=== PATIENT | male | born 1940 | race Caucasian/White ===

== ENCOUNTER 2023-12-07 16:42 | Observation (INO) | payer MEDICARE, OTHER, SELFPAY ==
[2023-12-07] VITALS (9 sets, daily range): BP systolic 143–166; BP diastolic 66–79; BMI 19.3
[2023-12-07 12:47] LABS: % Basophils 0.3 % (0-2); % Eosinophils 1.9 % (0-6); % Immature Granulocytes 0.7 % (0-0.5); % Lymphocytes 8.7 % (20.5-51.1); % Monocytes 13.6 % (1.7-9.3); % Neutrophils 74.8 % (42.2-75.2); Absolute Eosinophils 0.1 10^3/uL (0-0.7); Absolute Immature Granulocytes 0.1 10^3/uL (0-0.05); Absolute Lymphocytes 0.6 10^3/uL (1.2-3.4); Absolute Monocytes 0.9 10^3/uL (0.1-0.6); Absolute Neutrophils 5.2 10^3/uL (1.4-6.5); Hematocrit 31.6 % (39.0-52.0); Hemoglobin 10.5 g/dL (13.0-18.0); Mean Corp Hgb Conc. 33.2 g/dL (33.0-37.0); Mean Corpuscular Hgb 32.2 pg (27.0-31.0); Mean Corpuscular Volume 96.9 fL (80.0-94.0); Mean Platelet Volume 9.1 fL (7.4-10.4); Nucleated Red Blood Cells % 0 % (-); Platelet Count 330 10^3/uL (130-400); Red Blood Cell Count 3.26 10^6/uL (4.70-6.10); Red Cell Dist. Width 11.7 % (11.5-14.5); White Blood Cell Count 6.9 10^3/uL (4.8-10.8)
[2023-12-07 13:03] LABS: ALT (SGPT) 63 U/L (0-50); AST (SGOT) 34 U/L (17-59); Albumin 2.4 g/dl (3.5-5.0); Alkaline Phosphatase 101 U/L (38-126); Blood Urea Nitrogen 15 mg/dl (9-20); Carbon Dioxide 27 mmol/L (22-30); Chloride 103 mmol/L (98-107); Glucose 89 mg/dl (70-99); Potassium 4.2 mmol/L (3.5-5.1); Sodium 134 mmol/L (135-145); Total Bilirubin 0.7 mg/dl (0.2-1.3); Total Protein 5.9 g/dl (6.3-8.2); eGFR > 60.00
[2023-12-07 13:12] LABS: Urine Albumin Negative (Neg - Trace); Urine Bilirubin Negative (Negative); Urine Character Clear (Clear); Urine Color Yellow; Urine Glucose Negative (Negative); Urine Ketone Negative (Negative); Urine Leukocyte Negative (Negative); Urine Nitrite Negative (Negative); Urine Occult Blood Negative (Negative); Urine Specific Gravity 1.015 (<1.030); Urine Urobilinogen 2+ (Neg - 1+); Urine pH 6.5 (5.0-9.0)
[2023-12-07 13:23] LABS: INR 1.78; PT 20.5 Sec (11.4-14.6)
--- NOTE | 2023-12-07 14:36 | ED.GENMED ---
History of Present Illness
General
Chief Complaint: Dehydration Symptoms
Source: spouse
Exam Limitations: none
Time Seen by Provider: 12/07/23 13:21
Nursing documentation reviewed up to this point in time: agreed with
Travel History
Have you had any contact with someone who has COVID-19?: No
Do you have any symptoms of coronavirus? Fever > 100 degrees, chills, cough, shortness of breath, sore throat, loss of taste or smell, muscle aches, or headache?: No
History of Present Illness
History of Present Illness:
Patient to ED for eval of lethargy. states since June he has been having periods where he will not get OOB, wont eat or drink. This is happening more frequently. states he was admitted to [facility] on Thursday but she signed him out
yesterday. SHe did not feel that he was getting the care he needed there. She brought him here at son's request. Patient is awake and oriented but flat. He denies any pain.
Past History
Past History
ED Past Medical History: Arrthythmia (afib), HTN, Hypercholesterolemia and Psychiatric (depression)
Review of Systems
Review of Systems
Allergies reviewed?: Yes
All Other Systems: ROS reviewed and negative except as documented in HPI and ROS
Constitutional: Reports fatigue
EENT: Reports no symptoms
Respiratory: Reports no symptoms
Cardiac: Reports no symptoms
ABD/GI: Reports anorexia
: Reports no symptoms
Musculoskeletal: Reports no symptoms
Skin: Reports no symptoms
Neurological: Reports weakness
Psychiatric: Reports no symptoms
Phy Exam
General Physical Exam
General Presentation: mild distress
General age: appears stated age
General Skin: warm and dry
General Habitus: failure to thrive and frail
Cardiovascular Exam
Cardiovascular Exam: regular rate/rhythm
Pulmonary Exam
Pulmonary Exam: lungs clear and no respiratory distress
Gastrointestinal Exam
Gastrointestinal Exam: normal bowel sounds, non tender and soft
Neurological Exam
Neurological Exam: oriented x3, CN II-XII intact, no motor deficits, no sensory deficits and speech normal
Musculoskeletal Exam
Musculoskeletal Exam: full ROM and neuro vasc intact
Skin Exam
Skin Exam: normal color, warm/dry and no rash
Psychiatric Exam
Psychiatric Exam: depressed
Course
Orders/Labs/Results
Orders:
Orders
12/07/23 12:34
EKG [Electrocardiogram (*1)] Stat
Reason for Study: Fatigue / Weakness
12/07/23 12:35
EKG- Treatment ONCE
12/07/23 12:36
Cardiac Monitoring- Treatment ONCE
IV Insert/Care/Rem.- Treatment PRN
CR Chest - 2 Views Urgent
Comment:
Reason For Exam: suspected infection
12/07/23 12:38
Complete Blood Count/With Diff Urgent
Comprehensive Metabolic Panel Urgent
Ferritin Urgent
Comment: ADD ON
Folate Urgent
Comment: ADD ON
Iron Urgent
Comment: ADD ON
Lactic Acid Q4H
Comment: ON ICE, CANCEL 2ND ORDER IF FIRST LACTIC ACID LEVEL <2
Prothrombin Time Urgent
TSH Reflex To Free T4 Urgent
Comment: ADD ON
Total Iron Binding Urgent
Comment: ADD ON
Vitamin B12 Urgent
Comment: ADD ON
Vitamin D, 25-Oh Urgent
Blood Culture Q30M
ALTA Source: Blood/Venous
Specimen Description:
Comment: FROM 2 SEPARATE SITES
Blood Culture Q30M
ALTA Source: Blood/Venous
Specimen Description:
Comment: FROM 2 SEPARATE SITES
12/07/23 13:02
Urinalysis Reflex To Culture Urgent
Date Specimen was Collected: 12/07/23
Time Specimen was Collected: 12:36
12/07/23 14:23
0.9% Sodium Chloride 1000 ml [Nss] 1,000 ml IV BOLUS
12/07/23 Dinner
Regular
At Your Request: Limited Participation
12/07/23 16:01
Add On- LAB Urgent
Tests Added?: b12 folate ferritin iron tibc
12/07/23 16:13
Add On- LAB Routine
Tests Added?: TSH with reflex T4, Vitamin B12, Vitamin D
12/07/23 16:20
Consult Psychiatry [PSYCHIATRY CONSULT] Routine
Consulting Provider: Mark Mckay
Was physician already notified: Yes
Reason for consult: depression FTT hypersomnia
12/07/23 16:21
Admit/Transfer Patient As Directed
Co-Sign Provider:
Level of Care: Observation services
Assign to:: Medical/Surgical
Physician / Group: radha barber
Diagnosis: ftt, depression macrocyctic anemia
Code Status As Directed
Resuscitation Status: Full Code
12/07/23 17:23
VTE Contraindication Routine
VTE Mechanical Device Contraindication: Medical Contraindication
Pharmocologic Contraindication: Medical Contraindication
Comment: pt on xarelto
Activity As Directed
Activity Level: As Tolerated
Intake/ Output As Directed
Frequency: Per unit guidelines
Vital Signs As Directed
Frequency: Per unit guidelines
Weight As Directed
Frequency: Daily
Ot Eval And Treat Routine
Pt Eval And Treat Routine
Activity Level: As Tolerated
12/07/23 18:00
Atorvastatin [Lipitor] 10 mg PO QPM
Rivaroxaban [Xarelto] 20 mg PO QPM
12/07/23 22:00
Metoprolol [Lopressor] 12.5 mg PO HS
12/08/23 06:00
Cardiovascular Evaluation IN AM
Complete Blood Count/With Diff IN AM
Comprehensive Metabolic Panel IN AM
12/08/23 08:00
Amiodarone [Pacerone] 400 mg PO DAILY
Cholecalciferol (Vitamin D3) [VITAMIN D3 (cholecalciferol)] 25 mcg PO DAILY
Losartan [Cozaar] 12.5 mg PO DAILY
Metoprolol [Lopressor] 50 mg PO DAILY
Sertraline HCl [Zoloft] 25 mg PO DAILY
12/09/23 06:00
Complete Blood Count/With Diff IN AM
Comprehensive Metabolic Panel IN AM
12/18/23 08:00
Amiodarone [Pacerone] 200 mg PO DAILY
Abnormal Lab Results
12/07/23 12/07/23
12:38 13:02
RBC 3.26 L 10^6/uL
(4.70-6.10)
Hgb 10.5 L g/dL
(13.0-18.0)
Hct 31.6 L %
(39.0-52.0)
MCV 96.9 H fL
(80.0-94.0)
MCH 32.2 H pg
(27.0-31.0)
Abs Immat Gran (auto) 0.1 H 10^3/uL
(0-0.05)
Absolute Lymphs (auto) 0.6 L 10^3/uL
(1.2-3.4)
Absolute Monos (auto) 0.9 H 10^3/uL
(0.1-0.6)
Immature Gran % 0.7 H %
(0-0.5)
Lymphocytes % 8.7 L %
(20.5-51.1)
Monocytes % 13.6 H %
(1.7-9.3)
PT 20.5 H Sec
(11.4-14.6)
Sodium 134 L mmol/L
(135-145)
Creatinine 0.6 L mg/dL
(0.7-1.3)
Calcium 8.0 L mg/dl
(8.4-10.2)
Iron 26 L ug/dl
(49-181)
TIBC 181 L ug/dl
(261-462)
% Saturation 14 L %
(20-50)
Ferritin 472.0 H ng/ml
(17.9-464.0)
ALT 63 H U/L
(0-50)
Total Protein 5.9 L g/dl
(6.3-8.2)
Albumin 2.4 L g/dl
(3.5-5.0)
Vitamin D 25-Hydroxy 25.0 L ng/mL
(30-80)
Urine Urobilinogen 2+ A
(Neg - 1+)
12/07/23 12:38
12/07/23 12:38
Vital Signs
Initial and Last Documented VS:
Initial Vital Signs
Temp Pulse Resp Pulse Ox
98.6 F 71 18 98
12/07/23 12:31 12/07/23 12:31 12/07/23 12:31 12/07/23 12:31
Last Documented Vital Signs
Temp Pulse Resp BP Pulse Ox
98.5 F 65 18 154/69 98
12/07/23 17:35 12/07/23 21:07 12/07/23 20:23 12/07/23 21:07 12/07/23 20:23
*Radiology
Radiology exam reviewed: radiology read reviewed
*Pulse Oximetry
Patient hypoxic: no
*Critical Care Note
Total Time (30-74mins, 75-104mins- exclusive of procedures): Not Applicable
Update Note
Update Note:
Patient brought to ED by spouse for failure to thrive. No eating or drinking. Will not get OOB. Increasing weakness. He was admitted to [facility] this weekend but spouse removed him because of care. [facility] afib. [facility] Dr[facility]aston [facility]. [facility] Ac[facility]arnulfo [facility]. states Neurology has r/o parkinsons disease. He was recently started on antidepressents. He is awake and oriented but mood is flat. IVF started in dept. Will not eat or drink in
dept. Will admit to hospitalist for failure to thrive.
ED Attending Note
-
Portions of this chart may have been created with voice recognition software.� Occasional wrong word or��sound alike� substitutions may have occurred due to the inherent limitations of voice recognition software.
Discharge Plan
Departure
Patient Disposition: Admit
Date of Disposition: 12/07/23
Time of Disposition: 15:13
Presentation/result/management discussed w/ accepting MD/DO: Hospitalist
Condition: Fair
Covid-19: Not Applicable
Discharge Problem:
Failure to thrive
Interventions
Interventions:
*Risk Screen - Suicide Last Done: 12/07/23 17:44
*General Assessment Last Done: 12/07/23 12:31
*Neglect/Abuse Screening Last Done: 12/07/23 12:31
ED- Fall Risk Assessment Last Done: 12/07/23 12:39
*ED COVID-19 Vaccine History Last Done: 12/07/23 17:44
*Nursing Disposition Last Done: 12/07/23 17:20
ED- Cardiac Assessment Last Done: 12/07/23 12:39
ED- Neurological Assessment Last Done: 12/07/23 12:39
ED- Pulmonary Assessment Last Done: 12/07/23 12:39
Discharge Date and Time
Discharge Date/Time: 12/07/23 17:37
[2023-12-07] MEDS: NSS 1000 IV (15:23)
--- NOTE | 2023-12-07 15:26 | HPS.HSE ---
Addendum entered and electronically signed by AGUSTÍN Kilgore 12/07/23 16:31:
Medication Correction
-
Patient was to start amiodarone 400 mg x 10 days then 200 mg daily
Original Note:
Family Physician
-
Family Physician: Adolfo Mcgill
Chief Complaint
-
Lethargy, sleeping, decreased oral intake
History of Present Illness
83-year-old male brought to the ER by his . She reports he has been lethargic since June with episodes of not getting out of bed, not eating or drinking. The patient's and daughter state that his episodes have been coming more
frequently over the past few weeks where he will sleep for 2 to 3 days in his bed. His states the bed does not incline she is afraid to feed him while in bed. She reports they sleep in separate bedrooms and she does hear him go to the
bathroom during the night. She states he is too weak to get up during the day. Patient is currently oriented x 3 has a very flat affect. He states he could be depressed somewhat. He reports feeling very tired and having difficulty getting out of
bed and has been sleeping a lot. He does not know what the cause of this is. His and daughter state he was placed on an antidepressant Zoloft 25 mg approximately 1 week ago by his segment assembler. He was also started on amiodarone for Holter
monitor showing over thousand episodes of SVT. His states he is only taken about 4 doses in the last 6 days while awake. His also states that he used to live in [place] until 2016 and a very active community they moved to a intermediate
community here for which they do not have chronic access to multiple people or activities due to having [place] [employer]. She reports since 2017 he has dropped from 210 pounds to 150 pounds. The patient denies any headache, sore throat,
chest pain, palpitations, shortness of breath, cough, abdominal pain, nausea, vomiting, diarrhea, gait disturbance.
She reports she had him admitted to [facility] on Thursday 2 days ago but felt he was not getting care there so she signed him out AGAINST MEDICAL ADVICE. Patient's past medical history of A-fib, HTN, HLD, depression, SVT Dx November 2023.
Medical History
Past Medical History
Past Medical History: Reports Other
Additional Past Medical History:
A-fib, HTN, HLD, depression, SVT Dx November 2023, [place] bilateral hearing aids
Past Surgical History: Reports None
Social History
Tobacco: Non-smoker
Alcohol: None
Drug: None
Personal:
Living: With Family ()
Employment: Retired
Family History
Family History: Other (Father age 58 [place], father age 90, Brother living age 75 appendiceal [place])
Allergies / Home Medications
Allergies reflects when Allergies were last updated in [employer].
Home Medications with original date entered in [employer]
Allergy/Medication List:
Allergies
Allergy/AdvReac Type Severity Reaction Status Date / Time
No Known Allergies Allergy Unverified 12/07/23 12:31
Home Medications
amiodarone 200 mg tablet 400 mg PO UD 12/07/23
cholecalciferol (vitamin D3) 25 mcg (1,000 unit) tablet (Vitamin D3) 25 mcg PO DAILY 12/07/23
losartan 25 mg tablet 12.5 mg PO DAILY 12/07/23
metoprolol tartrate 25 mg tablet 12.5 mg PO HS 12/07/23
metoprolol tartrate 50 mg tablet 50 mg PO DAILY 12/07/23
rivaroxaban 20 mg tablet (Xarelto) 20 mg PO QPM 12/07/23
sertraline 25 mg tablet 25 mg PO DAILY 12/07/23
simvastatin 10 mg tablet 10 mg PO QPM 12/07/23
vit C 250 mg-vit E 90 mg-zinc 40 mg-copper 1 [id number] capsule (PreserVision AREDS-2) 1 tab PO BID 12/07/23
Review of Systems
-
History Source: Patient and Family ( and daughter at bedside)
A 12 point ROS was completed and negative except as noted: Yes
Constitutional: Reports Fatigue and Other (Hypersomnia, chronic flat affect per daughter at bedside)
EENT: Denies Sore Throat or Other
Respiratory: Denies Cough or Trouble Breathing
Cardiac: Denies Chest Pain, Diaphoresis, Palpitations or Syncope
Abdomen/GI: Reports Anorexia; Denies Abdominal Pain, Nausea, Vomiting, Diarrhea, Constipated, Bloody Stools or Black Stools
: Denies Dysuria, Frequency, Flank Pain, Incontinence, Difficulty Voiding or Urgency
Musculoskeletal: Denies Joint Pain or Edema
Skin: Denies Itching or Rash
Neurological: Denies Dizzy, Headache or Weakness
Endocrine: Reports No Symptoms
Hematologic/Lymphatic: Reports No Symptoms
Psych: Reports Calm
Physical Exam
Vital Signs
Vital Signs
Temp Pulse Resp BP Pulse Ox
98.6 F 69 19 149/79 99
12/07/23 12:31 12/07/23 13:00 12/07/23 13:00 12/07/23 13:00 12/07/23 13:00
Physical Exam
General: Other (Flat affect will answer questions appropriately but allows and daughter to answer first is a full to maintain eye contact during conversation)
HEENT: NormoCephalic, Anicteric, PERRLA, [place] Conjunctivae, No Ptosis and Other (Chronic [place] has bilateral hearing aids in place)
Respiratory: Clear; No Wheezes, Rales or Rhonchi
Cardiac: S1/S2 and Regular Rhythm; No Murmur, Rub, Gallop or Peripheral Edema
GI: Soft, Non Tender, Non Distended, Normal Bowel Sounds and No Hepatosplenomegaly
Rectal: Deferred by Provider
Genito-urinary: Deferred by me
Musculoskeletal: No Clubbing, No Cyanosis and No Edema
Skin: Warm; No Rash
Neuro: AO x 3, No Motor Deficits, Nonfocal/grossly intact, Cranial Nerves Intact and No Sensory Deficits; No Slurred Speech, Facial Droop or Tremors
Psych: Calm and Depressed
Laboratory Results
-
12/07/23 12:38
12/07/23 12:38
Laboratory Results
PT 20.5 Sec (11.4-14.6) H 12/07/23 12:38
INR 1.78 12/07/23 12:38
Lactic Acid Cancelled 12/07/23 16:45
Total Bilirubin 0.7 mg/dl (0.2-1.3) 12/07/23 12:38
AST 34 U/L (17-59) 12/07/23 12:38
ALT 63 U/L (0-50) H 12/07/23 12:38
Alkaline Phosphatase 101 U/L (38-126) 12/07/23 12:38
Impression/Plan
-
Impression/plan:
Observation Med surg
#Failure to thrive/Hypersomnia concern for Acute Depression
Dx Deprssion 1 week ago
Decreased oral intake x 6 months
-consult psych
was started on zoloft 25 mg 7 days ago but only took about 3 days worth
-Check B12, folate, TSH and free T4 reflex, vitamin D
-Pt/ot casemgmt consult
CXR: No acute cardiopulmonary abnormality
#Depression new Dx November 2023
#Macrocytic anemia
Hgb 10.5, MCV 96.9
Check B12, folate, iron studies
#A-fib paroxysmal
-Continue metoprolol tartrate 50 mg a.m., 12.5 mg at bedtime, Xarelto 20 mg every afternoon
EKG sinus rhythm with PACs 67 bpm, QTc 422 MS otherwise normal
#History of SVT the Holter monitor
-Patient was started on amiodarone for 100 mg for 10-day course then to drop to 200 mg daily he is only taken approximately 3-4 doses before 100 mg
He follows with Dr. Mcgill at [facility] with plans to switch to Dr. Misael Kamara
He had evaluation by electrophysiology at [place] showing over thousand episodes of SVT
-OBTAIN Records from [facility] including Dr mcgill and EP from 1 week ago
#HTN�benign
149/79
-Continue metoprolol tartrate 50 mg a.m., 12.5 mg at bedtime
#HLD
Continue simvastatin 10 mg every afternoon
#[place] wears hearing aids
DVT prophylaxis
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
Full code
--- NOTE | 2023-12-07 16:08 | W.PN.UPDATE ---
Update Note
Progress Note Update
This is an addendum to H&P written by TRACER CLERK Hilda Garcia
I saw and examined the patient.
The TRACER CLERK's note was reviewed and I agree with the note.
Comment:
Mr. Rickie Lazaro is a 83 yo man with hx afib, HTN, HLD, afib on amio and Xarelto presents to the ER with increased lethargy. reports that he has had days of being lethargic and not leaving his bed and this started in June but frequency
has increased over past few weeks. He was admitted to [facility] but she discharged him AMA because she wasn't happy with the care.
He was started on Zoloft on week ago. Holter showed increased episodes of SVT and he was also started on amiodarone.
Triage VS: T 98.6, P 69, RR 19, BP 149/79, SpO2 99%
LABS: WBC 6.9, Hg 10.5, PLT 330, Na 134, K+ 4.2, Cr 0.6, Ca 8.0, AST 34, ALT 63
CXR
IMPRESSION:
No radiographic evidence of acute cardiopulmonary abnormality.
On exam patient is hard of hearing, has flat affect, CV: S1, S2, irregular rhythm (sinus arrhythmia). Lungs clear. Abdomen benign. No pronator drift. 5/5 strength upper and lower extremities.
Failure to Thrive
-will check TSH and vitamin B12. concern for depression with flat affect, increased lethargy.
-weight loss reported; will request records from [facility] and consider work-up CT chest/abdomen/pelvis
-IVF
-PT/OT
[2023-12-07 17:17] LABS: Iron 26 ug/dl (49-181)
[2023-12-07 17:27] LABS: Percent Saturation 14 % (20-50); Total Iron Binding Capacity 181 ug/dl (261-462)
[2023-12-07] MEDS: XARELTO 20 MG PO (18:13)
[2023-12-07] MEDS: LIPITOR 10 MG PO (18:13)
[2023-12-07 18:47] LABS: TSH Reflex To Free T4 2.31 uIU/ml (0.47-4.68)
[2023-12-07 19:30] LABS: Folate 9.7 ng/ml (2.76-20); Vitamin B12 718 pg/ml (239-931)
[2023-12-07] MEDS: LOPRESSOR 12.5 MG PO (21:07)
[2023-12-08 06:40] LABS: % Basophils 0.4 % (0-2); % Eosinophils 3.3 % (0-6); % Immature Granulocytes 0.4 % (0-0.5); % Lymphocytes 10.1 % (20.5-51.1); % Monocytes 12.8 % (1.7-9.3); Absolute Eosinophils 0.3 10^3/uL (0-0.7); Absolute Lymphocytes 0.8 10^3/uL (1.2-3.4); Absolute Neutrophils 5.6 10^3/uL (1.4-6.5); Hematocrit 31.4 % (39.0-52.0); Hemoglobin 10.5 g/dL (13.0-18.0); Mean Corp Hgb Conc. 33.4 g/dL (33.0-37.0); Mean Corpuscular Hgb 32.4 pg (27.0-31.0); Mean Corpuscular Volume 96.9 fL (80.0-94.0); Mean Platelet Volume 9.5 fL (7.4-10.4); Nucleated Red Blood Cells % 0 % (-); Platelet Count 334 10^3/uL (130-400); Red Blood Cell Count 3.24 10^6/uL (4.70-6.10); Red Cell Dist. Width 11.6 % (11.5-14.5); White Blood Cell Count 7.7 10^3/uL (4.8-10.8)
[2023-12-08 06:51] LABS: ALT (SGPT) 55 U/L (0-50); AST (SGOT) 30 U/L (17-59); Albumin 2.5 g/dl (3.5-5.0); Alkaline Phosphatase 101 U/L (38-126); Blood Urea Nitrogen 14 mg/dl (9-20); Calcium 8.2 mg/dl (8.4-10.2); Carbon Dioxide 24 mmol/L (22-30); Chloride 103 mmol/L (98-107); Estimated Creatinine Clearance 96 ml/min; Glucose 92 mg/dl (70-99); HDL Cholesterol 20 mg/dl; LDL Cholesterol, Calculated 72 mg/dl; Potassium 4.1 mmol/L (3.5-5.1); Sodium 133 mmol/L (135-145); Total Bilirubin 0.8 mg/dl (0.2-1.3); Total Cholesterol 104 mg/dl (50-199); Triglyceride 60 mg/dl (10-149); Very Low Density Lipoprotein 12 mg/dl (0-30); eGFR > 60.00
[2023-12-08 07:01] VITALS: BP 152/76
[2023-12-08] MEDS: COZAAR 12.5 MG PO (07:40)
[2023-12-08] MEDS: ZOLOFT 25 MG PO (07:40)
[2023-12-08] MEDS: PACERONE 400 MG PO (07:41)
[2023-12-08] MEDS: VITAMIN D3 (cholecalciferol) 25 MCG PO ×2 (07:41→12:28)
[2023-12-08] MEDS: LOPRESSOR 50 MG PO (07:41)
--- NOTE | 2023-12-08 10:39 | W.PN.HOSP.TC ---
Today's Communication/Plan
-
PT/OT
Psychiatry Consult
Assessment / Plan
Assessment / Plan
Mr. Rickie Lazaro is a 83 yo man with hx afib, HTN, HLD, afib on amio and Xarelto presents to the ER with increased lethargy. reports that he has had days of being lethargic and not leaving his bed and this started in June but frequency
has increased over past few weeks. He was admitted to [facility] but she discharged him AMA because she wasn't happy with the care.
He was started on Zoloft on week ago. Holter showed increased episodes of SVT and he was also started on amiodarone.
Triage VS: T 98.6, P 69, RR 19, BP 149/79, SpO2 99%
LABS: WBC 6.9, Hg 10.5, PLT 330, Na 134, K+ 4.2, Cr 0.6, Ca 8.0, AST 34, ALT 63
CXR
IMPRESSION:
No radiographic evidence of acute cardiopulmonary abnormality.
Failure to Thrive
-TSH and Vitamin B12 OK
-concern for depression with flat affect, increased lethargy. Also the fact that the lethargy waxes and wanes (some days he can get out of bed without issue and go for walks per ). He has no focal deficit on exam
-weight loss reported; will request records from [facility] and consider work-up CT chest/abdomen/pelvis (* telling me today this was done)
-with YANCY consider EGD/[facility] as outpatient
-PT/OT
-Psychiatry consult
#Macrocytic anemia
-vitamin B12 and Folate OK
-iron % low -start iron on DC - consider outpatient work-up as above (hg stable)
#A-fib paroxysmal
-Continue metoprolol tartrate 50 mg a.m., 12.5 mg at bedtime, Xarelto 20 mg every afternoon
#History of SVT the Holter monitor
-Patient was started on amiodarone for 400 mg for 10-day course then to drop to 200 mg daily he is only taken approximately 3-4 doses
He follows with Dr. Mcgill at [facility] with plans to switch to Dr. Benton Charles
He had evaluation by electrophysiology at [place] showing over thousand episodes of SVT
-OBTAIN Records from [facility] including Dr mcgill and EP from 1 week ago
#HTN�benign
149/79
-Continue metoprolol tartrate 50 mg a.m., 12.5 mg at bedtime
#HLD
Continue simvastatin 10 mg every afternoon
#[place] wears hearing aids
DVT prophylaxis
Continue [place] Xarelto
Full code
Anticipated Discharge: 24 - 48 hours
Subjective/Interval History
-
Date of Service: December 08, 2023
more awake today and ate breakfast
family describes days where he is so lethargic that cannot wake him from his sleep
Objective Data
-
Labs:
Laboratory Results
12/08/23
05:44
WBC 7.7
Hgb 10.5 L
Hct 31.4 L
Plt Count 334
Sodium 133 L
Potassium 4.1
Chloride 103
Carbon Dioxide 24
BUN 14
Creatinine 0.6 L
Glucose 92
Calcium 8.2 L
Total Bilirubin 0.8
AST 30
ALT 55 H
Alkaline Phosphatase 101
Vital Signs:
Vital Signs
Temp Pulse Resp BP Pulse Ox
98.2 F 66 16 152/76 98
12/08/23 07:01 12/08/23 07:01 12/08/23 07:01 12/08/23 07:01 12/08/23 07:01
I&O
12/07/23 12/08/23 12/09/23
06:59 06:59 06:59
Intake Total 480 / 480
Output Total 650 / 650
Balance -170 / -170
Review of Systems
-
History Source: Patient
All other systems: Reviewed and negative
Physical Exam
-
General: No Apparent Distress
HEENT: PERRLA and Hearing Impaired
Respiratory: Clear to Auscultation; Negative Wheezes
GI: Soft and Nontender
Musculoskeletal: No Edema
Skin: Warm and Dry; Negative Rash
Neuro: Awake, Alert and Other (no pronator drift, no facial asymmetry, 5/5 strength upper and lower extremities )
Psych: Calm
Data Reviewed
-
Diagnostic Radiology: Report Reviewed by me
Labs: Labs Reviewed by me
[2023-12-08 11:58] VITALS: BP 147/71
[2023-12-08 12:36] VITALS: BP 147/71; PULSE 62; O2SAT 97
--- NOTE | 2023-12-08 13:59 | CS.PSYCHR ---
Consult Summary - Psychiatry
-
Pt is 83 yo male admitted with FTT, seen with present to assess for depression. Pt very hard of hearing; reports he has been losing weight over several years. In recent weeks, pt has been staying in bed sleeping for 2 to 3 days at a time
on a weekly basis. Pt does not really eat when staying in bed; he has become more weak and tired. Pt has a good appetite when out of bed and more active per family. Pt does not complain of feeling depressed, he mainly talks about getting older and
feeling tired. Pt's Overlock Elastic Attacher, Dr Gaston, started him on Zoloft (Sertraline) 25 mg daily about one week ago. Pt has low Sodium, Calcium, Vit D, protein levels. Pt is anemic. Pt noted with frequent episodes of SVT at [facility], where pt's
signed him out AMA. Pt denies any suicidal ideation. reports pt did much better when they lived in [place] in an active community; pt could still ride his bike then. Pt has had episode of collapse/falls- 3 years ago and 2 months ago.
Psych hx: denied
PMH: A-fib, HTN, HLD, SVT Dx November 2023, [place] bilateral hearing aids
SH: , living with ; moved back from [place] in 2015. No substance use noted
MSE: alert, reclining upright in bed, cooperative, hard of hearing and soft-spoken. Speech difficult to hear/understand at times. Affect blunted, mood mildly dysphoric. Denies feeling depressed, denies SI. No signs of psychosis
Imp: Unspecified depressive d/o; unable to determine how much of symptoms could be due to depression, as there are multiple medical factors that could cause fatigue
Rec: continue trial of Sertraline, consider increasing to 50 mg daily; will need at least 3 to 4 weeks to see a clinical response
Outpatient medication mgt when medically cleared; can be with PCP or Overlock Elastic Attacher who started Sertraline. Discussed option of seeking a psychiatrist with pt and family
will follow
[2023-12-08 15:46] VITALS: BMI 19.3
--- NOTE | 2023-12-08 15:56 | CM ---
CM met with pt bedside
Pt resides with spouse at [facility]
He notes independence at baseline normally with us a WW at night
Has been weaker lately
PCP- Brandon Adams
Rx- Michele Eng
PT/OT with SNF recommendations
Pt is OBS
MARSHALL verbally reviewed with pt- copy left bedside
Call with [facility] CM Department
Pt admitted to ED only on 12/05 and left AMA
No qualifying admission at [facility] within past 30 days
Pt does not qualify for [employer] waiver
Pt requesting referral to [facility] SNF to check bed availability and private pay costs
Call with spouse/dtr- with many medical concerns
Requesting attending speaks with son about family medical concerns
TT/Dr Agudelo who left VM with son Rickie Miller [phone]
Spouse not pleased that pt does not have qualifying stay for SNF
PASRR completed and referral sent via [facility] to [facility]
Awaiting response and private pay costs
Discharge Disposition- SNF private pay vs home with services if SNF refusal
[2023-12-08 15:57] VITALS: BP 144/60
--- NOTE | 2023-12-08 16:32 | W.PN.UPDATE ---
Update Note
Progress Note Update
long conversation had with son. stated that at [place] neurologists said this was a cardiac issue and cardiologists said it was a neurologic issue. He states in June these days of somnolence happened once every 2-3 weeks but now more
progressive. He is upset that cardiology and neurology consults have not been ordered. I explained there is no new arrhythmia and we are continuing the amiodarone started by prior EP physician. I told son I will order an MRI Brain for more
complete work-up. He is told this will be outpatient copay as patient is observation and he understands.
Son worried this is med related but patient goes days without taking meds and doesn't seem to make a difference.
[2023-12-08] MEDS: LIPITOR 10 MG PO (17:18)
[2023-12-08] MEDS: XARELTO 20 MG PO (17:21)
[2023-12-08 19:24] VITALS: BP 155/70
[2023-12-08] MEDS: LOPRESSOR 12.5 MG PO (20:26)
[2023-12-08 22:53] VITALS: BP 156/75
[2023-12-09 03:24] VITALS: BP 112/75
[2023-12-09 06:00] VITALS: BMI 18.6
[2023-12-09 07:00] VITALS: BP 149/67
[2023-12-09] MEDS: LOPRESSOR 50 MG PO (08:45)
[2023-12-09] MEDS: VITAMIN D3 (cholecalciferol) 25 MCG PO (08:46)
[2023-12-09] MEDS: PACERONE 400 MG PO (08:48)
[2023-12-09] MEDS: COZAAR 12.5 MG PO (08:49)
[2023-12-09] MEDS: ZOLOFT 25 MG PO (08:54)
--- NOTE | 2023-12-09 09:53 | CM ---
Call received from Mrs. Lazaro requesting I contact Chayito Guy, the Independent Living SWer at [facility], to assist with admission to the SNF at [facility].
I spoke with Chayito Guy who provided the number for [facility] [phone]. This number refers callers to contact another number for referrals - [phone]; this number is currently unavailable. Will call again in a half hour.
--- NOTE | 2023-12-09 10:14 | CM ---
Call received from [facility] requesting assistance with transfer to [facility]. I spoke with Sara Slaughter who advised me to call Sharon Perfecto at [phone]; message on that number referred me to call [phone] which is
currently unavailable. Referral was sent via [facility] yesterday; will follow up in about an hour with [facility].
[2023-12-09 10:24] LABS: Hepatitis C Antibody Negative (Negative)
[2023-12-09] MEDS: VITAMIN D3 (cholecalciferol) PO (10:48)
--- NOTE | 2023-12-09 10:49 | W.PN.HOSP.TC ---
Today's Communication/Plan
-
MRI Brain
Assessment / Plan
Assessment / Plan
Mr. Rickie Lazaro is a 83 yo man with hx afib, HTN, HLD, afib on amio and Xarelto presents to the ER with increased lethargy. reports that he has had days of being lethargic and not leaving his bed and this started in June but frequency
has increased over past few weeks. He was admitted to [facility] but she discharged him AMA because she wasn't happy with the care.
He was started on Zoloft on week ago. Holter showed increased episodes of SVT and he was also started on amiodarone.
Triage VS: T 98.6, P 69, RR 19, BP 149/79, SpO2 99%
LABS: WBC 6.9, Hg 10.5, PLT 330, Na 134, K+ 4.2, Cr 0.6, Ca 8.0, AST 34, ALT 63
CXR
IMPRESSION:
No radiographic evidence of acute cardiopulmonary abnormality.
Failure to Thrive
-TSH and Vitamin B12 OK, vitamin D low -continuing repletion
-concern for depression with flat affect, increased lethargy. Also the fact that the lethargy waxes and wanes (some days he can get out of bed without issue and go for walks per ). He has no focal deficit on exam
-weight loss reported; will request records from [facility] and consider work-up CT chest/abdomen/pelvis (* telling me today this was done)
-with YANCY consider EGD/[place] as outpatient
-sleep study as outpatient
-will complete work up with MRI Brain
-PT/OT - eventual SNF
-Psychiatry consult appreciated
-continue NEUROUROLOGIST Zoloft - aware this may take 4-6 weeks to feel effect
#Macrocytic anemia
-vitamin B12 and Folate OK
-iron % low -start iron on DC - consider outpatient work-up as above (hg stable)
#A-fib paroxysmal
-Continue metoprolol tartrate 50 mg a.m., 12.5 mg at bedtime, Xarelto 20 mg every afternoon
#History of SVT the Holter monitor
-Patient was started on amiodarone for 400 mg for 10-day course then to drop to 200 mg daily he is only taken approximately 3-4 doses pre-admission. Start amiodarone 200mg PO QD on 12/11
He follows with Dr. Mcgill at [place] [facility] with plans to switch to Dr. Benton Charles
He had evaluation by electrophysiology at [place] showing over thousand episodes of SVT
-OBTAIN Records from [facility] including Dr mcgill and EP from 1 week ago
#HTN�benign
[id number]
-Continue metoprolol tartrate 50 mg a.m., 12.5 mg at bedtime
#HLD
Continue simvastatin 10 mg every afternoon
#[place] wears hearing aids
DVT prophylaxis
Continue NEUROUROLOGIST Xarelto
Full code
51 minutes spent on patient evaluation, medical decision making, coordination of care
Anticipated Discharge: Within 24 hours
Subjective/Interval History
-
Date of Service: December 09, 2023
awake/alert today
hoping to leave the hospital
ate breakfast
Objective Data
-
Vital Signs:
Vital Signs
Temp Pulse Resp BP Pulse Ox
97.6 F 61 16 149/67 98
12/09/23 07:00 12/09/23 07:00 12/09/23 07:00 12/09/23 07:00 12/09/23 07:00
I&O
12/08/23 12/09/23 12/10/23
06:59 06:59 06:59
Intake Total 480 / 480 360 / 360
Output Total 650 / 650 750 / 750
Balance -170 / -170 -390 / -390
Review of Systems
-
History Source: Patient
All other systems: Reviewed and negative
Physical Exam
-
General: No Apparent Distress
HEENT: PERRLA and Hearing Impaired
Respiratory: Clear to Auscultation; Negative Wheezes
GI: Soft and Nontender
Musculoskeletal: No Edema
Skin: Warm and Dry; Negative Rash
Neuro: Awake, Alert and Other (no pronator drift, no facial asymmetry, 5/5 strength upper and lower extremities )
Psych: Calm
Data Reviewed
-
Diagnostic Radiology: Report Reviewed by me
Labs: Labs Reviewed by me
[2023-12-09 11:00] VITALS: BP 145/68
--- NOTE | 2023-12-09 11:51 | CM ---
CM notified by Hailee Shabazz that Rickie qualifies for [facility] SNF waiver if seen by PCP and approved by PCP. Call to both [facility] and Sara Guy at [facility] to make them aware of this option - PCP appointment currently set up for
12/10/2023 at 4pm. Pt would need to be discharged from to attend PCP appointment and would then qualify for SNF coverage via the [employer] waiver (if PCP agrees).
Sara and Sharon to discuss; Hailee's phone number provided for questions related to the SNF waiver.
CM to follow, awaiting determination of private pay vs. waiver.
--- NOTE | 2023-12-09 12:49 | W.PN.UPDATE ---
Update Note
Progress Note Update
chart reviewed. discussed with nursing and with dr barber. some concern as to whether underlying medical issue responsible for change in mental status but dr barber and nursing report improvement in mental status. dr barber awaiting records from
prior [facility] to ascertain how much of a workup was done re weight loss which is longstanding since . also reviewed w dr barber that amiodarone can have psych effects but it is only a few days in duration and the change in mental status is not new.
also expressed concern that perhaps metoprolol in the am is causing some sedation but there may be a reason for this of which we are unaware hence records needed. he is having mri scan at present. it seems to be the general consensus that he is
better since coming to and further workup will depend on review of records. will come back later in the day to see him
--- NOTE | 2023-12-09 14:10 | W.PN.UPDATE ---
Update Note
Progress Note Update
patient seen chart reviewed. spoke with nursing again after patient returns from mri. mri shows no acute findings. present for this visit. the patient was alert and quite pleasant. he was eating his lunch with enthusiasm and completely
ingested the main course and was starting on dessert. reports he is much better but there is no answer as to what caused the lassitude which prompted his hospitalization. at this point would not make anyu changes in psych meds which are
minimal only sertraline 25 mg. amiodarone can increase blood level of sertraline so it would need to be monitored but if doses stay low it should be safe. psych will sign off.
[2023-12-09 15:00] VITALS: BP 141/65
[2023-12-09] MEDS: XARELTO 20 MG PO (17:37)
[2023-12-09] MEDS: LIPITOR 10 MG PO (17:37)
--- NOTE | 2023-12-09 18:55 | PTCARENOTE ---
Placed pt back on tele due to pt taking amiodarone at 400 mg daily. Pt NSR
[2023-12-09 19:47] VITALS: BP 143/77
[2023-12-09] MEDS: LOPRESSOR 12.5 MG PO (23:09)
[2023-12-09 23:39] VITALS: BP 148/64
[2023-12-10 03:37] VITALS: BP 169/73
[2023-12-10 04:30] VITALS: BP 140/65
[2023-12-10 05:55] VITALS: BMI 17.9
[2023-12-10 07:00] VITALS: BP 161/81
[2023-12-10] MEDS: ZOLOFT 25 MG PO (09:53)
[2023-12-10] MEDS: COZAAR 12.5 MG PO (09:53)
[2023-12-10] MEDS: VITAMIN D3 (cholecalciferol) 25 MCG PO (09:54)
[2023-12-10] MEDS: PACERONE 400 MG PO (09:54)
[2023-12-10] MEDS: LOPRESSOR 50 MG PO (09:55)
--- NOTE | 2023-12-10 10:44 | W.PN.HOSP.TC ---
Today's Communication/Plan
-
DC to SNF today
Assessment / Plan
Assessment / Plan
Mr. Rickie Lazaro is a 83 yo man with hx afib, HTN, HLD, afib on amio and Xarelto presents to the ER with increased lethargy. reports that he has had days of being lethargic and not leaving his bed and this started in June but frequency
has increased over past few weeks. He was admitted to [facility] but she discharged him AMA because she wasn't happy with the care.
He was started on Zoloft on week ago. Holter showed increased episodes of SVT and he was also started on amiodarone.
Triage VS: T 98.6, P 69, RR 19, BP 149/79, SpO2 99%
LABS: WBC 6.9, Hg 10.5, PLT 330, Na 134, K+ 4.2, Cr 0.6, Ca 8.0, AST 34, ALT 63
CXR
IMPRESSION:
No radiographic evidence of acute cardiopulmonary abnormality.
Failure to Thrive
-TSH and Vitamin B12 OK, vitamin D low -continuing repletion
-concern for depression with flat affect, increased lethargy. Also the fact that the lethargy waxes and wanes (some days he can get out of bed without issue and go for walks per ). He has no focal deficit on exam. MRI without acute change.
-weight loss reported over many years - can work further up as outpatient
-with YANCY consider EGD/[place] as outpatient
-sleep study as outpatient
-PT/OT - SNF today
-Psychiatry consult appreciated
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
#Macrocytic anemia
-vitamin B12 and Folate OK
-iron % low -start iron on DC - consider outpatient work-up as above (hg stable)
#A-fib paroxysmal
-Continue metoprolol tartrate 50 mg a.m., 12.5 mg at bedtime, Xarelto 20 mg every afternoon
#History of SVT the Holter monitor
-Patient was started on amiodarone for 400 mg for 10-day course then to drop to 200 mg daily he is only taken approximately 3-4 doses pre-admission. Start amiodarone 200mg PO QD on 12/11
He follows with Dr. Mcgill at [facility] with plans to switch to Dr. Benton Charles
He had evaluation by electrophysiology at [facility] showing over thousand episodes of SVT
-OBTAIN Records from [facility] including Dr mcgill and EP from 1 week ago
#HTN�benign
149/79
-Continue metoprolol tartrate 50 mg a.m., 12.5 mg at bedtime
#HLD
Continue simvastatin 10 mg every afternoon
#[place] wears hearing aids
DVT prophylaxis
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
Full code
51 minutes spent on patient evaluation, medical decision making, coordination of care
Anticipated Discharge: Today
Subjective/Interval History
-
Date of Service: December 10, 2023
feeling well
seen ambulating with therapy
Objective Data
-
Vital Signs:
Vital Signs
Temp Pulse Resp BP Pulse Ox
98.4 F 73 18 161/81 98
12/10/23 07:00 12/10/23 09:53 12/10/23 07:00 12/10/23 09:53 12/10/23 07:00
I&O
12/09/23 12/10/23 12/11/23
06:59 06:59 06:59
Intake Total 360 / 360 1560 / 1560
Output Total 750 / 750 150 / 150
Balance -390 / -390 1410 / 1410
Review of Systems
-
History Source: Patient
All other systems: Reviewed and negative
Physical Exam
-
General: No Apparent Distress
HEENT: PERRLA and Hearing Impaired
Respiratory: Clear to Auscultation; Negative Wheezes
GI: Soft and Nontender
Musculoskeletal: No Edema
Skin: Warm and Dry; Negative Rash
Neuro: Awake, Alert and Other (no pronator drift, no facial asymmetry, 5/5 strength upper and lower extremities )
Psych: Calm
Data Reviewed
-
Diagnostic Radiology: Report Reviewed by me
Labs: Labs Reviewed by me
[2023-12-10 11:00] VITALS: BP 157/73
--- NOTE | 2023-12-10 11:06 | W.DS.TRANS ---
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
-
Discharge Instructions:
Discharge Diagnosis/Procedures intermittent severe somnolence and lethargy
possibly related to depression
Diet Regular
Activity As tolerated
Driving Restrictions No driving
Bathing Restrictions None
Other Services PT,OT
Instructions:
Stand-Alone Forms:
Changes to Home Medications: No
Discharge Medications:
DC Medications w/original date entered in [facility]
cholecalciferol (vitamin D3) 25 mcg (1,000 unit) tablet (Vitamin D3) 25 mcg PO DAILY Supplement 12/07/23
losartan 25 mg tablet 12.5 mg PO DAILY Blood Pressure 12/07/23
metoprolol tartrate 25 mg tablet 12.5 mg PO HS Blood Pressure 12/07/23
metoprolol tartrate 50 mg tablet 50 mg PO DAILY Blood Pressure 12/07/23
rivaroxaban 20 mg tablet (Xarelto) 20 mg PO QPM Blood Clot Prevention/Tx 12/07/23
sertraline 25 mg tablet 25 mg PO DAILY Mental Health 12/07/23
simvastatin 10 mg tablet 10 mg PO QPM High Cholesterol 12/07/23
vit C 250 mg-vit E 90 mg-zinc 40 mg-copper 1 [id number] capsule (PreserVision AREDS-2) 1 tab PO BID Supplement 12/07/23
amiodarone 200 mg tablet 200 mg PO UD Arrhythmia #1 tab 12/10/23
Home Medication Changes
Pending Results: No
[2023-12-10 11:27] VITALS: BP 157/73; PULSE 67; O2SAT 98
--- NOTE | 2023-12-10 11:36 | CM ---
Addendum entered by Magaly Darby 12/10/23 14:31:
Patient seen with and daughter, discussed plan for discharge after telehealth appointment. Patients son will plan on transporting patient to SNF, will arrive around 4:30 p.m.
Original Note:
CM spoke with Sharon from [facility], confirmed they can accept patient today after PCP telehealth appt, around 5:00 p.m. Patient seen bedside, unsure of what time appointment is scheduled, reports his will know and she will be here
shortly. CM will confirm with patients time of appointment and if patient requires transportation. CM will continue to follow for discharge planning needs.
Plan; [facility] through [facility] waiver program.
[facility]
Report: [phone] ext [phone]
--- NOTE | 2023-12-10 12:41 | W.DCSUMMARY ---
Discharge Summary
Discharge Data
Date of Admission: 12/07/23
Date of Discharge: 12/10/23
-
Pending Results: No
Hospital Course
Discharging Physician : Dr. Adele Agudelo
Disposition : SNF
Primary care physician : Dr. Adolfo Gaston
Principal Discharge diagnosis : Waxing and waning somnolence possibly related to depression versus sleep apnea
Hospital Course :
Mr. Rickie Lazaro is a 83 yo man with hx afib, HTN, HLD, afib on amio and Xarelto presents to the ER with increased lethargy. reports that he has had days of being lethargic and not leaving his bed and this started in June but frequency
has increased over past few weeks.
He was started on Zoloft one week ago for depression. Outpatient event monitor showed increased episodes of SVT and he was also started on amiodarone.
Triage vitals stable, labs essentially unremarkable (Hg mildly low at 10.5). TSH and vitamin B12 WNL. Vitamin D low, he is told to continue repletion. On exam patient was alert, no focal deficits. During his 3 days of hospitalization he remained
alert and eating appropriately. He worked with PT/OT and SNF recommended for deconditioning. MRI Brain obtained to complete work-up which was negative for acute pathology. He was evaluated by Psychiatry during admission.
Possible that presentation consistent with depressive episodes. He was recently started on Zoloft which he should continue and dosage can be uptitrated as outpatient. 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
dosing, can go down to 1 pill (200mg) on 12/11. Recommend sleep study as outpatient to look for DEMETRICE as cause.
Patient is discharged to SNF to improve mobility given deconditioning with prolonged time in bed at home.
Time spent on discharge 35 minutes.
Important imaging findings :
BRAIN MRI 12/09/23
IMPRESSION:
No acute intracranial abnormality noted. Chronic senescent changes.
CXR 12/07/23
IMPRESSION:
No radiographic evidence of acute cardiopulmonary abnormality.
Procedure findings :
Discharge Plan
-
Patient Disposition: Care Home/SNF
Discharge Diagnosis/Procedures: intermittent severe somnolence and lethargy possibly related to depression
Diet: Regular
Activity: As tolerated
Driving Restrictions: No driving
Bathing Restrictions: None
Blood Work: vitamin d levels should be repeated in 4 weeks
Others Tests: A sleep study should be ordered as outpatient to see if sleep apnea is a cause of excessive fatigue
Other Services: PT and OT
Referrals:
Adolfo Gaston MD [Family Provider] - in less than 1 week
Additional Discharge Medication Instructions: Continue Zoloft 25mg daily. This may take another month to feel effects.
Continue Amiodarone. Take 400mg (2 pills) on 12/10 then start 200mg (1 pill) daily on 12/11.
Prescriptions:
Continued
simvastatin 10 mg Tablet
10 mg PO QPM
losartan 25 mg Tablet
12.5 mg PO DAILY
metoprolol tartrate 50 mg Tablet
50 mg PO DAILY
sertraline 25 mg Tablet
25 mg PO DAILY
metoprolol tartrate 25 mg Tablet
12.5 mg PO HS
cholecalciferol (vitamin D3) [Vitamin D3] 25 mcg (1,000 unit) Tablet
25 mcg PO DAILY
Xarelto 20 mg Tablet
20 mg PO QPM
PreserVision AREDS-2 250-90-40-1 mg Capsule
1 tab PO BID
amiodarone 200 mg Tablet
200 mg PO UD Qty: 1 0RF
Discharge Orders:
Discharge Patient (As Directed); Ordered 12/10/23
Ordered By: Adele Agudelo
Discharge Date and Time
Print Language: SWEDISH
[2023-12-10] MEDS: XARELTO 20 MG PO (16:36)
[2023-12-10] MEDS: LIPITOR 10 MG PO (16:36)
== END 2023-12-10 17:15 ==
LOC: 4 WEST ACU 16:42
PROVIDERS: Clinical Nurse Specialist Family Health; ADMITTING PHYSICIAN Student in an Organized Health Care Education/Training Program; EMERGENCY PHYSICIAN Emergency Medicine; FAMILY PHYSICIAN Internal Medicine Cardiovascular Disease; OTHER PHYSICIAN Psychiatry & Neurology Psychiatry
DX: R40.0 Somnolence (principal); E86.0 Dehydration; R62.7 Adult failure to thrive; F32.A Depression, unspecified; E78.00 Pure hypercholesterolemia, unspecified; I48.0 Paroxysmal atrial fibrillation; I10 Essential (primary) hypertension; R53.1 Weakness; R53.83 Other fatigue; G47.10 Hypersomnia, unspecified; D53.9 Nutritional anemia, unspecified; I47.10 Supraventricular tachycardia, unspecified; H91.90 Unspecified hearing loss, unspecified ear; R45.89 Other symptoms and signs involving emotional state; Z79.01 Long term (current) use of anticoagulants
CPT/HCPCS: 70551; 71046; 80053; 80061; 81003; 82306; 82607; 82728; 82746; 83540; 83550; 83605; 84443; 85025; 85610; 86803; 87040; 93005; 96360; 97116; 97162; 97166; 97530; 99285; G0378